=== PATIENT | female | born 1985 | race Caucasian/White ===

== ENCOUNTER 2017-04-06 13:33 | Day surgery (SDC) | payer BC ==
[~2017-04-06] VITALS: Ht 157.5 cm; Wt 51.2 kg
--- NOTE | ~2017-04-06 | OP ---
Record Of Operation [facility] [address] [place]. [address] NAME: GIANLUCA CHÁVEZ : 83 STATUS : [place] [facility] [place] PAT#: [id number] AGE: 31 ADM/REG DATE : 04/06/17 MR#: [id number] REPORT SERV DATE: 04/07/17 DICTATED BY: BRICE THOMASON DATE: 04/06/17 REPORT STATUS : Draft TRANSCRIBED BY: PANCHO DATE: 04/06/17 DATE OF PROCEDURE: 04/06/2017 PREOPERATIVE DIAGNOSES: 1. 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 2. Labral tear. POSTOPERATIVE DIAGNOSES: 1. 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 2. Labral tear. PROCEDURE: 1. Arthroscopic right hip labral repair. 2. Arthroscopic right hip pincer resection after acetabuloplasty. 3. Right hip arthroscopic cam femoroplasty. ANESTHESIA: General. ESTIMATED BLOOD LOSS: Minimal. IMPLANTS: Five suture anchors. SPECIMEN: None. ANTIBIOTICS: Ancef was given prior to incision. HISTORY: The patient is a 31-year-old female with long-standing history of right hip pain. I saw her in the office. She had been treated conservatively with injections and physical therapy and failed those treatments. We diagnosed her with femoroacetabular impingement and labral tear based on an MRI and our clinical exam. We discussed risks and benefits of surgery and nonoperative treatment with her. She elected for surgery. We discussed risks including cardiopulmonary complication, anesthesia, damage to surrounding tissues, infection, continued pain, failure to heal. After discussing these risks, she elected to proceed. OPERATIVE NOTE: The patient was seen in the preoperative area, consented, and marked. We answered all questions she had to her satisfaction. She was taken back to the operative suite, placed in the supine position, underwent general anesthesia, then put on the traction table. We then took our preoperative images. On the preoperative imaging, she had obvious CAM lesion as well as the pincer lesion. We then prepped and draped her right hip in sterile fashion and paused to perform a time-out confirming the correct patient, procedure, diagnosis, and extremity. We first made an anterolateral portal with fluoroscopic guidance with a spinal needle and then once I had made that portal, I made an anterior portal based on spinal needle localization, I then made an intraportal capsulotomy. When I entered the hip, cartilage was Record Of Operation [facility] [id number] [place]. [address] NAME: GIANLUCA CHÁVEZ : 83 STATUS : [place] [facility] [place] PAT#: [id number] AGE: 31 ADM/REG DATE : 04/06/17 MR#: [id number] REPORT SERV DATE: 04/07/17 DICTATED BY: BRICE THOMASON DATE: 04/06/17 REPORT STATUS : Draft TRANSCRIBED BY: PANCHO DATE: 04/06/17 intact. She had an obvious labral tear from 12 o'clock position all the way to 3 o'clock and an overcoverage of her acetabulum. I used a security chief museum to lift the capsule off the acetabulum and then used a haydee to perform a pincer resection. Once I completed the pincer resection, we used five suture anchors around the rim to repair the labrum back up to the acetabulum. I felt that we had a very good reliable repair after she was repaired. Once that was completed, we let the traction off. Went to the peripheral compartment. In the peripheral compartment, I used a traction suture to hold back the capsule and took it through multiple range of motion to identify the CAM lesion. Used fluoroscopy as well. I then used fluoroscopy and dynamic exam to resect our cam lesion with a haydee. When that was completed, I took final x-rays, I took final x-rays, took it through exam, I felt that we had resected the appropriate portion of the femur. I then closed the capsule with permanent sutures and then exited the hip. Once that was completed, we closed the wounds. She was then awakened. No complications, taken to PACU in stable condition. POSTOPERATIVE PLAN: She will be discharged home tonight, touchdown weightbearing. Follow up in one week. THAO/PANCHO Brice Thomason MD / [id number] CC: Brice Thomason MD
[~2017-04-06 13:33] MED LIST: ACET500CAP PO; ENDOCET1 TAB PO; LEVSINTAB PO; LINZESS 290 M290 MCG PO; MULTIVITAMI1 PO; PRILO PO
== END 2017-04-06 23:59 | disposition home or self-care (01) ==
LOC: SDC 13:33
PROVIDERS: Orthopaedic Surgery Sports Medicine
PROC: 0QB64ZZ Excision of Right Upper Femur, Percutaneous Endoscopic Approach (ICD-10-PCS; 2017-04-06)
PROC: 0SQ94ZZ Repair Right Hip Joint, Percutaneous Endoscopic Approach (ICD-10-PCS; 2017-04-06)
PROC: 0QB44ZZ Excision of Right Acetabulum, Percutaneous Endoscopic Approach (ICD-10-PCS; principal; 2017-04-06 14:15)
DX: M25.851 Other specified joint disorders, right hip (principal); S73.191A Other sprain of right hip, initial encounter; G43.909 Migraine, unspecified, not intractable, without status migrainosus; G89.29 Other chronic pain; M54.5 Low back pain; K21.9 Gastro-esophageal reflux disease without esophagitis; F17.210 Nicotine dependence, cigarettes, uncomplicated; Z88.6 Allergy status to analgesic agent; Z90.49 Acquired absence of other specified parts of digestive tract; Z98.51 Tubal ligation status; Z87.11 Personal history of peptic ulcer disease; Z88.0 Allergy status to penicillin; Z79.899 Other long term (current) drug therapy; Z98.890 Other specified postprocedural states
CPT/HCPCS: 84703; 88304; A9270-GY; J2175; J2250; J2270; J2405; J3010; J3370